=== PATIENT | male | born 1955 | race Caucasian/White ===

== ENCOUNTER 2016-05-17 09:38 | Emergency (ER) | payer OTHER ==
[~2016-05-17] VITALS: Ht 177.8 cm; Wt 148.5 kg
[2016-05-17 09:43] VITALS: TEMP 36.5; Ht 177.8 cm; Wt 148.5 kg
--- NOTE | 2016-05-17 10:03 | EMERGENCY ROOM VISIT NOTE ---
History Report prepared by Arlet: Carlos Drummond Under the Supervision of: Dr. Tobias Cox D.O. First contact with patient: 09:43 Chief Complaint: URINARY SYMPTOMS Stated Complaint: BLADDER INFECTION Nursing Triage Summary: pt c/o bladder infection since apr 12. has been taking nitrofurotin x 3 each time when completing course sx start to return. History of Present Illness The patient is a 61 year old male who presents to the Emergency Room with complaints of a recurrent bladder infection since April 12. The patient has been experiencing intermittent fevers, burning with urination, and cloudy urine. The patient denies any back or abdominal pain. He was treated with three courses of Nitrofurantoin. His last course was finished two days ago. The patient initially had relief after each course of the antibiotics, but found that his symptoms worsened shortly thereafter. The patient went to [place] ED yesterday, but left before he could be seen. He is on Plavix. Source of History: patient Onset: April 12 Position: other (bladder) Quality: other (infection) Timing: other (recurrent) Modifying Factors (Relieving): other (Nitrofurantoin) Associated Symptoms: + fevers, + urinary symptoms, No abdominal pain, No back pain Review of Systems See HPI for pertinent positives and negatives. A total of ten systems were reviewed and were otherwise negative. Past Medical & Surgical Surgical Problems: (1) Stented coronary artery Family History Patient reports no known family medical history. Social History Smoking Status: Never Smoker Marital Status: Housing Status: lives with family Current/Historical Medications Scheduled Allopurinol (Allopurinol), 300 MG PO DAILY Amlodipine (Norvasc), 5 MG PO DAILY Ciprofloxacin Hcl (Cipro), 500 MG PO BID Clopidogrel (Plavix), 75 MG PO DAILY Losartan Potassium (Cozaar), 100 MG PO DAILY Metoprolol Succinate (Metoprolol Succinate ER), 25 MG PO DAILY Pravastatin Sodium (Pravastatin Sodium), 1 TAB PO DAILY Allergies Coded Allergies: No Known Allergies (Unverified , 05/17/16) Physical Exam Vital Signs Date Time Temp Pulse Resp B/P Pulse Ox O2 Delivery O2 Flow Rate FiO2 05/17/16 10:50 85 16 160/101 97 Room Air 05/17/16 09:43 36.5 86 18 160/95 95 Room Air Physical Exam GENERAL: Awake, alert, well-appearing, in no distress HENT: Normocephalic, atraumatic. Oropharynx unremarkable. Hearing aids bilaterally. EYES: Normal conjunctiva. Sclera non-icteric. NECK: Supple. No nuchal rigidity. FROM. No JVD. RESPIRATORY: Clear to auscultation. CARDIAC: Regular rate, normal rhythm. Extremities warm and well perfused. Pulses equal. ABDOMEN: Soft, non-distended. No tenderness to palpation. No rebound or guarding. No masses. RECTAL: Deferred. MUSCULOSKELETAL: Chest examination reveals no tenderness. The back is symmetrical on inspection without obvious abnormality. There is no CVA tenderness to palpation. No joint edema. LOWER EXTREMITIES: Calves are equal size bilaterally and non-tender. No edema. No discoloration. NEURO: Normal sensorium. No sensory or motor deficits noted. SKIN: No rash or jaundice noted. Medical Decision & Procedures Laboratory Results Test 05/17/16 09:51 Urine Color YELLOW Urine Appearance CLOUDY (CLEAR) Urine pH 5.0 (4.5-7.5) Urine Specific [place] 1.019 (1.000-1.030) Urine Protein 2+ (NEG) Urine Glucose (UA) NEG (NEG) Urine Ketones NEG (NEG) Urine Occult Blood 2+ (NEG) Urine Nitrite POS (NEG) Urine Bilirubin NEG (NEG) Urine Urobilinogen NEG (NEG) Urine Leukocyte Esterase LARGE (NEG) Urine WBC (Auto) >30 /hpf (0-5) Urine RBC (Auto) 10-30 /hpf (0-4) Urine Hyaline Casts (Auto) 1-5 /lpf (0-5) Urine Epithelial Cells (Auto) 10-20 /lpf (0-5) Urine Bacteria (Auto) 4+ (NEG) Laboratory results reviewed by me Medications Administered Medications (Trade) Dose Ordered Sig/Rosangela Route Start Time Stop Time Status Last Admin Dose Admin Ciprofloxacin (Cipro Tab) 500 mg NOW STAT PO 05/17/16 10:18 05/17/16 10:20 DC 05/17/16 10:26 500 MG ED Course 0946: The patient was evaluated in room A9b. A complete history and physical exam was performed. 1018: Cipro 500 mg PO. Medical Decision Differential diagnosis includes UTI, cystitis, prostatitis. Patient has a positive urinary dip was on Macrobid there's been no culture performed. Patient will be started on Cipro I discussed this with the patient and patient's at bedside. I also sent a urine culture to follow for culture this may be prostatitis as he continues to have a urinary tract infection and I will refer him to urology Impression Primary Impression: Urinary tract infection Scribe Attestation The scribe's documentation has been prepared under my direction and personally reviewed by me in its entirety. I confirm that the note above accurately reflects all work, treatment, procedures, and medical decision making performed by me. Departure Information Dispostion Home / Self-Care Prescriptions Ciprofloxacin Hcl (CIPRO) 500 Mg Tab 500 MG PO BID, #20 TAB Prov: Tobias Cox, DO 05/17/16 Referrals Scooter García D.O. (PCP) Luis M Yu MD, Urology Forms HOME CARE DOCUMENTATION FORM, IMPORTANT VISIT INFORMATION Patient Instructions ED UTI Cystitis Male, My [facility] Health Problem Qualifiers Primary Impression: Urinary tract infection Encounter type: initial encounter
[2016-05-17] MEDS ORDERED: AMLO-110 PO (10:04)
[2016-05-17] MEDS ORDERED: ALL300 PO (10:04)
[2016-05-17] MEDS ORDERED: TPRSR/25 PO (10:04)
[2016-05-17] MEDS ORDERED: LOSA1TAB38 PO (10:04)
[2016-05-17] MEDS ORDERED: CLOP1TAB15 PO (10:04)
[2016-05-17] MEDS ORDERED: PRAV10TA39 PO (10:04)
[2016-05-17] MEDS ORDERED: CIPROFLOXACIN 500 MG TAB PO STA (10:18)
[2016-05-17 10:37] LABS: URINE APPEARANCE CLOUDY (CLEAR); URINE BILIRUBIN NEG (NEG); URINE COLOR YELLOW; URINE NITRITE POS (NEG); URINE SPECIFIC GRAVITY 1.019 (1.000-1.030); UROBILINOGEN NEG (NEG)
[2016-05-17 10:44] LABS: MANUAL MICROSCOPIC REQUIRED? NO; REVIEW REQ? NO
[2016-05-17] MEDS ORDERED: CIPR-255 PO (10:45)
[2016-05-17 10:50] VITALS: BP 160/101; PULSE 85; O2SAT 97
[2016-12-05] MEDS ORDERED: TAMS0.4C38 PO (13:52)
== END 2016-05-17 10:55 | disposition home or self-care (01) ==
LOC: C.EDB 09:41 → C.EDA 10:55
DX: N39.0 Urinary tract infection, site not specified (principal); Z98.61 Coronary angioplasty status; Z79.899 Other long term (current) drug therapy

== ENCOUNTER 2016-06-03 14:58 | Emergency (ER) | payer OTHER ==
[~2016-06-03] VITALS: Ht 177.8 cm; Wt 151.0 kg
[~2016-06-03 14:58] MED LIST: ALL300 PO; AMLO-110 PO; CIPR-255 PO; CLOP1TAB15 PO; LOSA1TAB38 PO; PRAV10TA39 PO; TPRSR/25 PO
[2016-06-03 15:02] VITALS: Ht 177.8 cm; Wt 151.0 kg
[2016-06-03] MEDS ORDERED: CEPH500C2 PO (16:02)
[2016-06-03 16:15] LABS: URINE APPEARANCE CLOUDY (CLEAR); URINE BILIRUBIN NEG (NEG); URINE COLOR YELLOW; URINE NITRITE POS (NEG); URINE SPECIFIC GRAVITY 1.021 (1.000-1.030); UROBILINOGEN NEG (NEG)
[2016-06-03 16:16] LABS: MANUAL MICROSCOPIC REQUIRED? NO; REVIEW REQ? NO
[2016-06-03 16:19] LABS: BASO % 0.2 %; BASO ABS # 0.02 K/uL (0-0.2); COMPLETE YES; EOS % 1.6 %; HEMATOCRIT 47.3 % (42-52); IG% 0.3 %; LYMPH % 20.7 %; LYMPH ABS # 2.05 K/uL (1.2-3.4); MEAN CELL VOLUME 88.1 fL (80-100); MEAN CORPUSCULAR HEMOGLOBIN 30.5 pg (25-34); MEAN CORPUSCULAR HGB CONC 34.7 g/dl (32-36); MEAN PLATELET VOLUME 10.1 fL (7.4-10.4); NEUT % 68.2 %; PLATELET COUNT 155 K/uL (130-400); RED BLOOD COUNT 5.37 M/uL (4.7-6.1); WHITE BLOOD COUNT 9.89 K/uL (4.8-10.8)
[2016-06-03 16:41] LABS: BUN/CREATININE RATIO 10.4 (10-20); CALCIUM 8.8 mg/dl (8.5-10.1); CREATININE 1.3 mg/dl (0.60-1.40); POTASSIUM 3.9 mmol/L (3.5-5.1)
[2016-06-03 17:03] VITALS: PULSE 64; TEMP 36.8
[2016-06-03] MEDS ORDERED: NITR-5 PO (17:42)
[2016-06-03] MEDS ORDERED: MACROBID 100MG HOME PACK 1 EA VIAL PO ONE (17:45)
[2016-06-03 17:56] VITALS: BP 153/94; O2SAT 98
--- NOTE | 2016-06-05 12:03 | Pharmacy Progress Note ---
ED Pharmacist Culture FollowUp Date of Service: Jun 05, 2016. Patient was sent home with a prescription for nitrofurantoin, which should cover the E. coli growing from the patient's urine culture.
--- NOTE | 2016-06-30 10:00 | EMERGENCY ROOM VISIT NOTE ---
History Report prepared by Arlet: Eunice Austin Under the Supervision of: Dr. Rene Dill M.D. First contact with patient: 15:47 Chief Complaint: URINARY SYMPTOMS Stated Complaint: BLADDER INFECTION Nursing Triage Summary: Triage note: pt reports "i have a bladder infection i have been fooling with it since april 12, it seems like it will go away for a few days and then it comes back." pt reports he finished his last course of antibiotics on saturday. pt reports burning with urination and urinary frequency. 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 The patient states that he has had several urinary tract infections that are treated by antibiotics and he states his symptoms then resolved but return after ending the antibiotics. The patient states that he 4 days ago he finished another antibiotic and states that he felt relief of his symptoms. He states 2 days ago his urinary symptoms returned again. He states he has some burning with urination and increased frequency along with a decreased appetite. The patient denies any abdominal pain, back pain, fever, chills, nausea, vomiting, weakness, and numbness. The patient denies any history of prostate issues and states he has not yet seen an urologist for his symptoms. Source of History: patient Onset: several weeks PATIENT FINANCIAL SERVICES COORDINATOR Position: other (urinary) Timing: other (recurrent) Modifying Factors (Relieving): other (antibotics) Associated Symptoms: No abdominal pain, No back pain, No chills, No fevers, No nausea, No numbness, No vomiting, No weakness Note: Associated symptoms: burning with urination and increased frequency, and decreased appetite. Review of Systems See HPI for pertinent positives & negatives. A total of 10 systems reviewed and were otherwise negative. Past Medical & Surgical Surgical Problems: (1) Stented coronary artery Old medical records were reviewed. Nurse's notes were reviewed and I agree with. Family History Patient reports no known family medical history. Social History Smoking Status: Never Smoker Marital Status: Housing Status: lives with family Current/Historical Medications Scheduled Allopurinol (Allopurinol), 300 MG PO DAILY Amlodipine (Norvasc), 5 MG PO DAILY Cephalexin Monohydrate (Keflex), 500 MG PO QID Clopidogrel (Plavix), 75 MG PO DAILY Losartan Potassium (Cozaar), 100 MG PO DAILY Metoprolol Succinate (Metoprolol Succinate ER), 25 MG PO DAILY Nitrofurantoin Monohyd Macrocr (Macrobid), 100 MG PO BID Pravastatin Sodium (Pravastatin Sodium), 1 TAB PO DAILY Allergies Coded Allergies: No Known Allergies (Unverified , 06/03/16) Physical Exam Vital Signs Date Time Temp Pulse Resp B/P Pulse Ox O2 Delivery O2 Flow Rate FiO2 06/03/16 17:56 153/94 98 06/03/16 17:03 36.8 64 16 161/102 98 Room Air 06/03/16 15:02 37.0 74 20 165/94 96 Room Air Physical Exam General: Well developed well nourished non ill appearing older male in no acute distress, breathing comfortably on room air. Normal speech HEENT: Normal cephalic atraumatic. Pupils are equal round and reactive to light. Extraocular movements are intact. Oropharynx is pink with moist mucous membranes. No swelling of the mouth lips or tongue. Neck: Supple with a midline trachea. No meningeal signs or stiffness, no JVD or bruits. No Stridor. Chest: Clear to auscultation bilaterally. No wheezes or rhonchi. No increased work of breathing. Heart: regular rate and rhythm. Abdomen: Soft nontender, nondistended without rebound guarding or rigidity. Extremities: No cyanosis clubbing or edema. No calf tenderness or assymetry Spine/Back. Non tender to palpation. No CVA tenderness Skin: Good turgor without rashes. Neurologic exam: Cranial nerves two through 12 are intact. Motor and sensation are intact and symmetrical throughout. Medical Decision & Procedures Laboratory Results 06/03/16 16:10 Red Blood Count 5.37, Mean Corpuscular Volume 88.1, Mean Corpuscular Hemoglobin 30.5, Mean Corpuscular Hemoglobin Concent 34.7, Mean Platelet Volume 10.1, Neutrophils (%) (Auto) 68.2, Lymphocytes (%) (Auto) 20.7, Monocytes (%) (Auto) 9.0, Eosinophils (%) (Auto) 1.6, Basophils (%) (Auto) 0.2, Neutrophils # (Auto) 6.74, Lymphocytes # (Auto) 2.05, Monocytes # (Auto) 0.89, Eosinophils # (Auto) 0.16, Basophils # (Auto) 0.02 06/03/16 16:10 Test 06/03/16 14:59 06/03/16 15:45 06/03/16 16:10 Lab Scanned Report Laboratory Report/Additional Urine Color YELLOW Urine Appearance CLOUDY (CLEAR) Urine pH 5.0 (4.5-7.5) Urine Specific Branch 1.021 (1.000-1.030) Urine Protein TRACE (NEG) Urine Glucose (UA) NEG (NEG) Urine Ketones NEG (NEG) Urine Occult Blood 1+ (NEG) Urine Nitrite POS (NEG) Urine Bilirubin NEG (NEG) Urine Urobilinogen NEG (NEG) Urine Leukocyte Esterase LARGE (NEG) Urine WBC (Auto) >30 /hpf (0-5) Urine RBC (Auto) 0-4 /hpf (0-4) Urine Hyaline Casts (Auto) 1-5 /lpf (0-5) Urine Epithelial Cells (Auto) 10-20 /lpf (0-5) Urine Bacteria (Auto) 4+ (NEG) White Blood Count 9.89 K/uL (4.8-10.8) Red Blood Count 5.37 M/uL (4.7-6.1) Hemoglobin 16.4 g/dL (14.0-18.0) Hematocrit 47.3 % (42-52) Mean Corpuscular Volume 88.1 fL (80-100) Mean Corpuscular Hemoglobin 30.5 pg (25-34) Mean Corpuscular Hemoglobin Concent 34.7 g/dl (32-36) Platelet Count 155 K/uL (130-400) Mean Platelet Volume 10.1 fL (7.4-10.4) Neutrophils (%) (Auto) 68.2 % Lymphocytes (%) (Auto) 20.7 % Monocytes (%) (Auto) 9.0 % Eosinophils (%) (Auto) 1.6 % Basophils (%) (Auto) 0.2 % Neutrophils # (Auto) 6.74 K/uL (1.4-6.5) Lymphocytes # (Auto) 2.05 K/uL (1.2-3.4) Monocytes # (Auto) 0.89 K/uL (0.11-0.59) Eosinophils # (Auto) 0.16 K/uL (0-0.5) Basophils # (Auto) 0.02 K/uL (0-0.2) RDW Standard Deviation 45.4 fL (36.4-46.3) RDW Coefficient of Variation 14.1 % (11.5-14.5) Immature Granulocyte % (Auto) 0.3 % Immature Granulocyte # (Auto) 0.03 K/uL (0.00-0.02) Anion Gap 9.0 mmol/L (3-11) Est Creatinine Clear Calc Drug Dose 87.9 ml/min Estimated GFR () 68.3 Estimated GFR (Non- 58.9 BUN/Creatinine Ratio 10.4 (10-20) Calcium Level 8.8 mg/dl (8.5-10.1) Date/Time Source Procedure Growth Status 06/03/16 15:45 Urine , Clean Catch Urine Culture - Final Escherichia Coli Complete Laboratory studies as stated above per my review. Medications Administered Medications (Trade) Dose Ordered Sig/Rosangela Route Start Time Stop Time Status Last Admin Dose Admin Nitrofurantoin (Macrobid Homepack 100MG) 1 homepack UD ONCE PO 06/03/16 17:45 06/03/16 17:46 DC 06/03/16 17:45 1 HOMEPACK ED Course 1551: Past medical records reviewed. The patient was evaluated in room A12A, and a complete history and physical examination were performed. 1744: Upon reevaluation, the patient is resting comfortably. I discussed the results and treatment plan with him. He verbalized agreement of the treatment plan. The patient was discharged home. 1745: Ordered Nitrofurantoin 1 homepack PO. Medical Decision Differentials include, but are not limited to; UTI, pyelonephritis, kidney stone , electrolyte or metabolic abnormality. Patient comes in with urinary symptoms. He is nontoxic and [id number]. He has nothing clinically to suggest pyelonephritis. He has no fever or white count. He is not anemic. He has no significant electrolyte or metabolic abnormality. His urinalysis does suggest a UTI. He hasothing to suggest acute kidney stone. He was started on Macrobid. He is to follow-up with his regular doctor. He will return if: Worsening of symptoms, fever or chills, any new problems or concerns. Impression Primary Impression: Urinary tract infection Scribe Attestation The scribe's documentation has been prepared under my direction and personally reviewed by me in its entirety. I confirm that the note above accurately reflects all work, treatment, procedures, and medical decision making performed by me. Departure Information Dispostion Home / Self-Care Prescriptions Nitrofurantoin Monohyd Macrocr (Macrobid) 100 Mg Cap 100 MG PO BID, #20 CAP Prov: Rene Dill M.D. 06/03/16 Referrals Scooter García D.O. (PCP) Forms HOME CARE DOCUMENTATION FORM, IMPORTANT VISIT INFORMATION Patient Instructions My [facility] Additional Instructions Rest. Drink plenty of fluids. Use Macrobid twice a day for 10 days Return if: Increasing pain, worsening of symptoms, fever or chills, not tolerating fluids, any problems concerns. Our case management team will help you get in with urologist this week.
[2016-12-05] MEDS ORDERED: TAMS0.4C38 PO (13:52)
== END 2016-06-03 17:56 | disposition home or self-care (01) ==
LOC: C.EDB 14:59 → C.EDA 17:56
DX: N39.0 Urinary tract infection, site not specified (principal); A49.8 Other bacterial infections of unspecified site

== ENCOUNTER → 2016-06-12 | Outpatient (CLI) | payer OTHER ==
[~2016-06-12] MED LIST changes: +CEPH500C2 PO; -CIPR-255 PO; +NITR-5 PO; +OPTIRAY 320 IV PRN; +TAMS0.4C38 PO
--- NOTE | 2016-06-12 07:48 | DIAGNOSTIC IMAGING REPORT ---
ABDOMEN AND PELVIS CT WITH AND WITHOUT IV CONTRAST, UROGRAM PROTOCOL CT DOSE: 3559.85 mGy.cm HISTORY: N20.0 Calculus of [id number] Urinary tract infection, acute AUTH TECHNIQUE: Multiaxial CT images of the abdomen and pelvis were performed both before and after the use of intravenous contrast to evaluate the urinary system. Maximal intensity projection images were performed at the workstation by the radiologist. COMPARISON STUDY: None. FINDINGS: No renal or ureteral calculi. No hydronephrosis. No suspicious filling defects seen within the bilateral renal collecting systems, ureters, or bladder. Mild bladder wall thickening. 4 mm subpleural nodule along the right minor fissure on image 10 of 521. A 3 mm nodule within the left lower lobe. Calcified granuloma within the left lower lobe. Mild thickening of the distal esophagus and a small hiatus hernia. Cholecystectomy. The liver, pancreas, spleen, and adrenal glands are unremarkable. The kidneys enhance normally. No retroperitoneal lymphadenopathy. Colonic diverticulosis. No bowel wall thickening or obstruction. Normal appendix. IMPRESSION: 1. No renal or ureteral stones. No hydronephrosis. 2. No suspicious filling defects seen within the opacified bilateral renal collecting systems, ureters, or bladder. 3. Cholecystectomy. 4. Colonic diverticulosis. 5. A few subcentimeter nodules within the lung bases as described above with the largest measuring 4 mm. Please refer to the chart below for recommended follow-up. 6. Small hiatus hernia and mild thickening of the distal esophagus. 7. Mild thickening of the bladder wall which may be due to underdistention. Recommend correlation with urinalysis. Electronically signed by: Georgi Vera M.D. 06/12/2016 7:47 AM Dictated Date/Time: 06/12/2016 7:38 AM
== END | disposition home or self-care (01) ==
LOC: C.CTS 06:11
PROVIDERS: ATTEND Nurse Practitioner Adult Health
DX: N20.0 Calculus of kidney (principal); N39.0 Urinary tract infection, site not specified; Z90.49 Acquired absence of other specified parts of digestive tract; K57.90 Diverticulosis of intestine, part unspecified, without perforation or abscess without bleeding; R91.8 Other nonspecific abnormal finding of lung field; K44.9 Diaphragmatic hernia without obstruction or gangrene

== ENCOUNTER → 2016-07-24 | Outpatient (CLI) | payer OTHER ==
[~2016-07-24] MED LIST changes: +AMOX875T PO; -OPTIRAY 320 IV PRN; +OXYC1TAB3 PO
== END | disposition home or self-care (01) ==
LOC: C.LABPBG 09:04
PROVIDERS: ATTEND Nurse Practitioner Family
DX: N39.0 Urinary tract infection, site not specified (principal)

== ENCOUNTER 2017-02-19 13:24 | Emergency (ER) | payer OTHER ==
[~2017-02-19] VITALS: Ht 177.8 cm; Wt 148.0 kg
[~2017-02-19 13:24] MED LIST changes: -AMOX875T PO; -CEPH500C2 PO; -NITR-5 PO; -OXYC1TAB3 PO
[2017-02-19 13:25] VITALS: TEMP 36.4; Ht 177.8 cm; Wt 148.0 kg
[2017-02-19] MEDS ORDERED: OXYMETAZOLINE HCL 0.05% NA SPR 15 ML BTL ONE (13:47)
[2017-02-19] MEDS ORDERED: SILVER NITR/POTASSIUM NITRATE APPLICATOR EXT STA (14:01)
--- NOTE | 2017-02-19 14:29 | EMERGENCY ROOM VISIT NOTE ---
ED Visit Note First contact with patient: 13:36 CHIEF COMPLAINT: Nosebleed HISTORY OF PRESENT ILLNESS: This 62-year-old male patient presents to the emergency department, ambulatory, with his , complaining of a nosebleed. He states he has had 5 nosebleeds in the past 2 days. He does take Plavix and aspirin, however has not taken his aspirin today. The patient states he does have a history of nosebleeds in the winter as the air dries out. He states over the weekend, he was outside in the last all day. He states nosebleeds have begun when bending over forward, and he has had difficulty getting them under control. He states they last 5-10 minutes at a time, however has had them intermittently for the past 2 days. He has been using a paper towel soaked in Vaseline to help. He normally leads this packing in place until it becomes saturated prior to changing it. He states he has been using a humidifier, but only began using this yesterday. He states this nosebleed seems worse than they were last year. REVIEW OF SYSTEMS: A review of systems was performed with positives and pertinent negatives listed in the history of present illness. All other systems were reviewed and are negative. ALLERGIES: None MEDICATIONS: Losartan, pravastatin, metoprolol, Plavix, normal allopurinol PMH: Hypertension, hyperlipidemia, coronary stent SOCIAL HISTORY: The patient lives locally with family. He denies drug, tobacco use. He admits to drinking 1-2 alcoholic beverages a day. PHYSICAL EXAM: VITALS: Vitals are noted on the nurse's note and reviewed by myself. Vital signs stable. GENERAL: This is a 62-year-old white male, in no acute distress, nondiaphoretic , well-developed well-nourished. SKIN: The skin was without rashes, erythema, edema, or bruising. There is no tenting of the skin. Capillary reflex less than 2 seconds. HEAD: Normocephalic atraumatic. EARS: External auditory canals clear, tympanic membranes pearly santos without erythema or effusion bilaterally. EYES: Pupils equal round and reactive to light and accommodation. Conjunctivae without injection, sclerae without icterus. Extraocular movements intact. NOSE: Patent, turbinates without inflammation or discharge. No sinus tenderness. MOUTH: Mucous membranes moist. Tonsils are not enlarged. Pharynx without erythema or exudate. Uvula midline. Airway patent. Tongue does not deviate. NECK: Supple without nuchal rigidity. No lymphadenopathy. No thyromegaly. Cervical spine is nontender. No JVD. HEART: Regular rate and rhythm without murmurs gallops or rubs. LUNGS: Clear to auscultation bilaterally without wheezes, rales or rhonchi. No dullness to percussion. No retractions or accessory muscle use. NEURO: Patient was alert and oriented to person place and time. Normal sensation to light and sharp touch. No focal neurological deficits. EMERGENCY DEPARTMENT COURSE: The patient was seen and evaluated as above. Initial attempts to decrease the bleeding were made with Afrin and a nasal clamp. This was unsuccessful. I did attempt to cauterize the bleed located on the septum which appears to be coming from the ethmoid arteries using silver nitrate. The patient was lead to sit, and he did experience rebleeding. Verbal consent was obtained to use a Rapid Rhino to pack the nose. At this point , a 7.5 mm rapid Rhino was placed in the left nostril. This was inflated with 10 mL of air. The patient did tolerate this procedure well, however, he did state the procedure was extremely uncomfortable. The patient did request to have us scheduled him an appointment with ENT for this week. Due to the patient 's insurance, Dr. Desai's office was contacted. We were advised that we could not schedule the patient until the office staff discussed the case with Dr. Desai. We did not hear back for over 1 hour, so I discussed options with the patient including discharge vs. continuing to wait. The patient was given his first dose of Augmentin as well as a dose of OxyIR for pain. He did report feeling significantly better. the patient did decide on going home, so he will be contacted if we hear back from Dr. Desai's office. Discharge instructions were reviewed. The patient was discharge home in good condition with his driving. After discharge, Dr. Desai did contact the ED back and stated he would see the patient on Saturday in the office. I attest that I have personally reviewed the patient's current medication list. Patient was found to have normal blood pressure on screening and does not require follow-up. DIFFERENTIAL DIAGNOSIS: Epistaxis, hypertension, acute sinusitis, abnormal clotting, malignancy, and others DIAGNOSIS: Epistaxis Problem List Surgical Problems: (1) Stented coronary artery Status: Chronic Current/Historical Medications Scheduled Allopurinol (Allopurinol), 300 MG PO DAILY Amlodipine (Norvasc), 5 MG PO DAILY Amoxicillin & Pot Clavulanate (Augmentin 875-125 mg), 1 TAB PO BID Clopidogrel (Plavix), 75 MG PO DAILY Losartan Potassium (Cozaar), 100 MG PO DAILY Metoprolol Succinate (Metoprolol Succinate ER), 25 MG PO DAILY Pravastatin Sodium (Pravastatin Sodium), 10 MG PO DAILY Scheduled PRN Oxycodone Ir (Roxicodone Ir), 1-2 TAB PO Q4H PRN for Pain Allergies Coded Allergies: No Known Allergies (Unverified , 02/19/17) Vital Signs Date Time Temp Pulse Resp B/P (MAP) Pulse Ox O2 Delivery O2 Flow Rate FiO2 02/19/17 16:22 80 17 180/98 98 02/19/17 15:31 74 17 182/87 92 Room Air 02/19/17 13:25 36.4 69 18 157/83 97 Room Air Medications Administered Medications (Trade) Dose Ordered Sig/Rosangela Route Start Time Stop Time Status Last Admin Dose Admin Amoxicillin/ Clavulanate Potassium (Augmentin Tab) 875 mg ONE STAT PO 02/19/17 15:14 02/19/17 15:15 DC 02/19/17 15:33 875 MG Oxycodone HCl (Roxicodone Immediate Rel Tab) 5 mg NOW STAT PO 02/19/17 15:14 02/19/17 15:15 DC 02/19/17 15:33 5 MG Departure Information Impression Primary Impression: Epistaxis Dispostion Home / Self-Care Condition GOOD Prescriptions Oxycodone Ir (Roxicodone Ir) 5 Mg Tab 1-2 TAB PO Q4H Y for Pain, #20 TAB For Initial Treatment Prov: Jannette Pineda PA-C 02/19/17 Amoxicillin & Pot Clavulanate (Augmentin 875-125 mg) 1 Tab Tab 1 TAB PO BID for 10 Days, #20 TAB Prov: Jannette Pineda PA-C 02/19/17 Referrals Scooter García D.O. (PCP) Jaziel Desai MD Patient Instructions ED Nosebleed, My [facility] Additional Instructions You have been treated in the Emergency Department today for your Nose Bleed ( Epistaxis). Leave the packing in your nose until you return to the Emergency Department to have it removed by a Healthcare Provider. It is dangerous to remove this packing and should NOT be attempted at home. You were prescribed Augmentin to be taken twice daily. This is an antibiotic. All antibiotics have the potential to cause diarrhea. Stop this medication and contact a medical provider if you were to develop any significant adverse side effects including: wheezing, shortness of breath, passing out, vomiting, or a diffuse rash. Always take antibiotics as directed and COMPLETE the ENTIRE course regardless of the improvement of your symptoms. You have been prescribed OxyIR to be used for pain control. Take 1-2 tablets every 4-6 hours as needed for pain. This is a narcotic medication. You cannot drive or consume alcohol while on this medicine. This medicine should only be used for pain that cannot be controlled with [id number] pain medicines. Do NOT blow your nose for the next few days. This can result in recurrence of your nosebleed. You should use a humidifier to help moisten the air and decrease instances of nosebleeds. You can use uyxm-[id number] saline nasal sprays to help moisten the nasal mucosa and decrease instances of nosebleeds. You may use the Afrin spray which was provided to you if needed for re- bleeding. Use 2-3 sprays in the affected nostril every 10-12 hours as needed. Do not exceed 6 sprays in one nostril. As with any trip to the Emergency Department, you should follow-up with your Primary Care Provider from today's visit. Follow-up with ENT as directed. If you do not receive a call back from the ED regarding an appointment, call the office directly tomorrow in attempts to continue to schedule an outpatient appointment. If they will not see you, return to the ED in 3-5 days for removal of the packing and follow-up. Return to the emergency department if your symptoms persist despite treatment plan outlined above or if the following symptoms occur: uncontrollable nosebleed , dizziness, lightheadedness, pre-syncope, or re-bleed.
[2017-02-19] MEDS ORDERED: OXYCODONE HCL IR 5 MG TAB (IMMEDIATE RELEASE) PO STA (15:14)
[2017-02-19] MEDS ORDERED: AMOXICILLIN/CLAVULANATE TAB 875 MG TAB PO STA (15:14)
[2017-02-19] MEDS ORDERED: OXYC1TAB3 PO (15:26)
[2017-02-19] MEDS ORDERED: AMOX875T PO (15:26)
[2017-02-19 16:22] VITALS: BP 180/98; PULSE 80; O2SAT 98
== END 2017-02-19 16:23 | disposition home or self-care (01) ==
LOC: C.EDB 13:25 → C.EDD 16:23
DX: R04.0 Epistaxis (principal); I10 Essential (primary) hypertension; E78.5 Hyperlipidemia, unspecified; Z95.5 Presence of coronary angioplasty implant and graft; Z79.01 Long term (current) use of anticoagulants; Z79.82 Long term (current) use of aspirin